=== PATIENT | male | born 1990 | race Caucasian/White ===

== ENCOUNTER 2019-11-27 11:19 | Emergency (ER) | payer MEDICAID ==
--- NOTE | 2019-11-27 11:25 | Emergency Department Record ---
History of Present Illness - General Chief Complaint: Dizziness Stated Complaint: DIZZY Time Seen by Provider: 11/27/19 11:20 Source: Patient Mode of Arrival: Ambulatory Limitations: No limitations - History of Present Illness Initial Comments: 29 yo male presents with about two weeks of not feeling well. He has congestion, "plugged" ears, nasal drainage, cough, vague feeling of being dizzy. No fever. No headache. No vision changes. No nausea, vomiting or diarrhea. No swollen glands. Mild sore throat. The cough is non productive. No chest p ain. No abdominal pain. No swelling of the legs. He is from [facility]. He is on multiple psychiatric medications. No difficulty walking. No coordination trouble. No speech or vision changes. Dr Davis is his PCP. MD Complaint: Dizziness -: Week(s) (2) Timing: Intermittent Description: Lightheadedness, Sense of movement History of Same: No History of Trauma: No Severity: Mild Improves With: Nothing Worsens With: Nothing Associated Symptoms: Cough, Other (congestion, nose and ears congested) - Nathan Coma Scale Eye Response: (4) Open spontaneously Motor Response: (6) Obeys commands Verbal Response: (5) Oriented [place] Total: 15 - Related Data Home Medications Medication Instructions Recorded Confirmed Last Taken Benztropine Mesylate 0.5 mg PO BID 11/27/19 11/27/19 Unknown Divalproex Sodium [Depakote] 1,500 mg PO QHS 11/27/19 11/27/19 Unknown Divalproex Sodium [Depakote] 500 mg PO DAILY 11/27/19 11/27/19 Unknown Haloperidol Decanoate 200 mg IM ASDIR 11/27/19 11/27/19 Unknown Olanzapine [Zyprexa] 10 mg PO DAILY 11/27/19 11/27/19 Unknown Olanzapine [Zyprexa] 20 mg PO QHS 11/27/19 11/27/19 Unknown Allergies Allergy/AdvReac Type Severity Reaction Status Date / Time naproxen [From Aleve] AdvReac VOMITING Verified 11/27/19 11:25 Review of Systems Constitutional: Denies: Chills, Fever, Malaise, Weakness Eyes: Denies: Eye discharge, Eye pain, Photophobia, Vision change ENT: Reports: Congestion, Ear pain, Throat pain. Denies: Epistaxis Respiratory: Reports: Cough. Denies: Dyspnea, Hemoptysis, Wheezes Cardiovascular: Denies: Chest pain, Edema, Palpitations, Syncope Endocrine: Denies: Fatigue, Polydipsia, Polyuria Gastrointestinal: Denies: Abdominal pain, Diarrhea, Nausea, Vomiting Genitourinary: Denies: Dysuria, Frequency, Hematuria Musculoskeletal: Denies: Arthralgia, Back pain, Joint swelling, Myalgia, Neck pain Skin: Denies: Bruising, Change in color, Rash Neurological: Denies: Abnormal gait, Confusion, Headache, Numbness, Paresthesias, Tingling, Tremors, Weakness Psychiatric: Denies: Anxiety Hematological/Lymphatic: Denies: Easy bleeding, Easy bruising, Swollen glands Physical Exam - General General Appearance: Alert, Oriented x3, Cooperative, No acute distress Limitations: No limitations - Head Head exam: Atraumatic, Normal inspection - Eye Eye exam: Normal appearance, PERRL, EOMI. negative: Conjunctival injection, Nystagmus, Periorbital swelling, Periorbital tenderness - ENT ENT exam: Normal exam, Mucous membranes moist. negative: TM's normal bilaterally (bilateral cerumen impaction) Ear exam: Normal external inspection Nasal Exam: Normal inspection Mouth exam: Normal external inspection - Neck Neck exam: Normal inspection - Respiratory Respiratory exam: Normal lung sounds bilaterally. negative: Respiratory distress - Cardiovascular Cardiovascular Exam: Regular rate, Normal rhythm, Normal heart sounds Peripheral Pulses: 2+: Radial (R), Radial (L) - GI/Abdominal GI/Abdominal exam: Soft. negative: Tenderness - Rectal Rectal exam: Deferred - exam: Deferred - Extremities Extremities exam: Normal inspection. negative: Pedal edema, Tenderness - Back Back exam: Denies: CVA tenderness (R), CVA tenderness (L) - Neurological Neurological exam: Alert, CN II-XII intact, Normal gait, Oriented X3, Reflexes normal, Other (Normal FTN, Normal SHRUTHI, Normal Rhomberg response, Normal walking, NO PND.). negative: Abnormal gait, Altered, Motor sensory deficit - Psychiatric Psychiatric exam: negative: Agitated, Anxious, Normal affect, Normal mood - Skin Skin exam: Dry, Intact, Normal color, Warm Course - Reevaluation(s) Reevaluation #1: 11/27/19 11:59 The CBC is normal The BMP is normal 11/27/19 12:04 The LFTs are normal 11/27/19 13:13 The cerumen was removed from both canals with very good results 11/27/19 13:19 Valproic acid 41. Non toxic. DC home asymptomatic at this time No signs of other more acute process Medical Decision Making - Lab Data Result diagrams: 11/27/19 11:36 11/27/19 11:36 Disposition Disposition: Discharge Clinical Impression: Dizziness, Impacted cerumen of both ears Disposition: Home, Self-Care Condition: (1) Good Instructions: Cerumen Impaction (ED), Dizziness (ED) Additional Instructions: Review this ER visit and the tests performed with your family doctor Call your doctor for the next available follow up appointment Return to the ER for a recheck immediately if worse, any new concerns or questions Forms: Patient Portal Access Time of Disposition: 13:14 Quality - Quality Measures Quality Measures: N/A - Blood Pressure Screening Does Patient Have Any of the Following: No Blood Pressure Classification: Pre-Hypertensive BP Reading Systolic Measurement: 131 Diastolic Measurement: 85 Screening for High Blood Pressure: < Pre-Hypertensive BP, F/U Documented > [[id number]] Pre-Hypertensive Follow-up Interventions: Referral to alternative/primary care provider.
[2019-11-27 11:49] LABS: ABSOLUTE NEUTROPHIL COUNT 8.89; BASO % 0.2 % (0-6); EOS % 1.5 % (0-6); GRAN % 73.5 % (47-80); HEMATOCRIT 46.4 % (42.0-52.0); HEMOGLOBIN 15.3 gm/dl (14.0-18.0); LYMPH % 16.6 % (16-45); MEAN CELL VOLUME 87.5 fl (81-97); MEAN CORPUSCULAR HEMOGLOBIN 28.9 pg (27-33); MEAN PLATELET VOLUME 10.3 fl (7.4-10.4); MONO % 8.2 % (0-9); PLATELET COUNT 269 K/uL (130-400); RED CELL DISTRIBUTION WIDTH 13.4 % (11.5-14.5); WHITE BLOOD COUNT W/O DIFF 12.1 K/uL (4.2-12.2)
[2019-11-27 11:56] LABS: BLOOD UREA NITROGEN 8 mg/dL (6-20)
[2019-11-27 11:57] LABS: CREATININE 0.6 mg/dL (0.7-1.2); EST GLOMERULAR FILTRATION RATE > 60 mL/min; TOTAL PROTEIN 7.1 g/dL (6.6-8.7)
[2019-11-27 11:59] LABS: GLUCOSE,RANDOM 107 mg/dL (74-109)
[2019-11-27 12:02] LABS: ALB/GLOB RATIO 1.2 (1.1-1.8); ALBUMIN 3.8 g/dL (4.0-5.0); ALKALINE PHOSPHATASE 94 U/L (40-129); ALT/SGPT 41 U/L (<41); AST/SGOT 26 U/L (10.0-50.0)
[2019-11-27 13:14] LABS: VALPROIC ACID (DEPAKENE) 41.3 ug/mL (50.0-100.0)
== END 2019-11-27 13:22 | disposition home or self-care (01) ==
LOC: ER 11:19
DX: H61.23 Impacted cerumen, bilateral (principal); R42 Dizziness and giddiness
CPT/HCPCS: 80053; 80164; 85025; 99283